=== PATIENT | female | born 1995 | race Caucasian/White ===

== ENCOUNTER 2019-04-17 14:19 | Emergency (ER) | payer OTHER ==
[~2019-04-17] VITALS: Ht 160 cm; Wt 68.5 kg
[2019-04-17 14:25] VITALS: Ht 160 cm; Wt 68.5 kg
[2019-04-17 18:21] VITALS: BP 114/55
== END 2019-04-17 18:22 | disposition home or self-care (01) ==
LOC: ED 14:19
DX: S63.611A Unspecified sprain of left index finger, initial encounter (principal); S39.012A Strain of muscle, fascia and tendon of lower back, initial encounter; M62.838 Other muscle spasm; X50.0XXA Overexertion from strenuous movement or load, initial encounter; Y93.89 Activity, other specified; Y92.89 Other specified places as the place of occurrence of the external cause; Y99.8 Other external cause status